=== PATIENT | female | born 1940 | race African-American/Black ===

== ENCOUNTER 2025-02-16 21:05 | Emergency (ER) | payer MEDICARE, MEDICAID ==
[~2025-02-16] VITALS: Ht 177.8 cm; Wt 68.0 kg
[2025-02-16 21:08] VITALS: O2SAT 99
[2025-02-16] MEDS: HALOPERIDOL LACTATE 5MG/ML VIAL IM ONE (22:15)
[2025-02-16] MEDS ORDERED: DIATR MEGLU/DIATRIZOATE SOLN 30ML ONE (23:00)
[2025-02-17 04:20] VITALS: BP 122/66; PULSE 94; RESP 14; TEMP 36.7; O2SAT 95
== END 2025-02-17 04:28 | disposition hospice, inpatient (51) ==
LOC: ER 21:05
DX: T85.528A Displacement of other gastrointestinal prosthetic devices, implants and grafts, initial encounter (principal); I10 Essential (primary) hypertension; F03.90 Unspecified dementia, unspecified severity, without behavioral disturbance, psychotic disturbance, mood disturbance, and anxiety; J44.9 Chronic obstructive pulmonary disease, unspecified; F41.9 Anxiety disorder, unspecified; X58.XXXA Exposure to other specified factors, initial encounter; Y93.89 Activity, other specified; Y92.89 Other specified places as the place of occurrence of the external cause; Y99.8 Other external cause status
CPT/HCPCS: 99284; 43762; 74018; Q9963